=== PATIENT | female | born 1955 | race Caucasian/White ===

== ENCOUNTER → 2016-07-15 | Day surgery (SDC) | payer BC ==
[~2016-07-15] MED LIST: Sodium Chloride 0.9% 1,000 ML IV SCH
[2016-07-15 08:17] VITALS: BP 156/85
== END ==
LOC: JP.SDS 08:02
PROVIDERS: ATTEND Surgery
DX: Z12.11 Encounter for screening for malignant neoplasm of colon (principal); Z53.8 Procedure and treatment not carried out for other reasons

== ENCOUNTER 2020-04-17 05:25 | Day surgery (SDC) | payer MEDICARE ==
[2020-04-17] MEDS ORDERED: Ondansetron 4 MG/2 ML SDV IVPUSH ONE (06:16)
[2020-04-17] MEDS ORDERED: Dextrose 5%-Lactated Ringers 1,000 ML IV SCH ×2 (07:00)
[2020-04-17] MEDS ORDERED: Midazolam 1 MG/ML 2 ML SDV ONE (07:16)
[2020-04-17] MEDS ORDERED: fentaNYL 100 MCG/2 ML SDV ONE (07:16)
[2020-04-17] MEDS ORDERED: Propofol 200 MG/20 ML SDV ONE (07:16)
[2020-04-17 08:35] VITALS: PULSE 81
[2020-04-17 09:09] VITALS: BP 116/74
--- NOTE | 2020-04-23 15:22 | OR ---
DATE OF PROCEDURE: 04/17/2020 SURGEON: Kendall Hernandez MD PREOPERATIVE DIAGNOSIS: History of colon polyps. POSTOPERATIVE DIAGNOSIS: Normal colonoscopy with no recurrent colon polyps. PROCEDURE PERFORMED: Flexible colonoscopy. ANESTHESIA: IV sedation. INDICATIONS FOR PROCEDURE: This is a 64-year-old female presenting for followup screening colonoscopy. She does have a history of colon polyps, and on her last examination, had some low-grade dysplasia in one of the polyps. Because of what appears to be a relatively aggressive polyp formation pattern, she is presently on her 3-year followup cycle for the colonoscopies. Plan is to proceed with colonoscopy with biopsies and/or polypectomy as indicated. Potential risks including bleeding and perforation were discussed, and the patient wishes to proceed. DETAILS OF PROCEDURE: The patient was taken to the operating room and placed in the left lateral decubitus position. IV sedation was administered, after which the initial digital rectal exam was performed and was unremarkable. Colonoscope was then passed into the rectum with retroflexion revealing uncomplicated hemorrhoidal columns. The scope was then eventually passed to the cecum. The prep was quite good. Only a small amount of liquid stool was present. To that level, no abnormalities were noted. There were no areas of diverticular disease or colitis, and no polyps or other signs of neoplasia. The scope was then withdrawn and the procedure then concluded. The patient was taken to the recovery room in satisfactory condition. RECOMMENDATIONS: Repeat the colonoscopy in 3 years as noted above. Kendall Hernandez MD /[id number]
== END 2020-04-17 09:00 | disposition home or self-care (01) ==
LOC: JP.SDS 05:25
PROVIDERS: ATTEND Surgery
DX: Z12.11 Encounter for screening for malignant neoplasm of colon (principal); K64.9 Unspecified hemorrhoids; I10 Essential (primary) hypertension; Z86.010 Personal history of colon polyps; Z88.2 Allergy status to sulfonamides
CPT/HCPCS: G0105; J2250; J2405; J2704; J3010; J7121

== ENCOUNTER 2024-10-05 06:11 | Day surgery (SDC) | payer MEDICARE ==
[2024-10-05] MEDS: Lactated Ringers 1,000 ML IV SCH (07:08)
[2024-10-05] MEDS ORDERED: fentaNYL 100 MCG/2 ML SDV ONE (07:35)
[2024-10-05] MEDS ORDERED: Propofol 200 MG/20 ML SDV ONE (07:35)
[2024-10-05 09:41] VITALS: BP 114/63; PULSE 65
== END 2024-10-05 09:10 | disposition home or self-care (01) ==
LOC: JP.SDS 06:11
PROVIDERS: ATTEND Surgery
DX: Z12.11 Encounter for screening for malignant neoplasm of colon (principal); D12.3 Benign neoplasm of transverse colon; I10 Essential (primary) hypertension; E66.9 Obesity, unspecified; Z88.2 Allergy status to sulfonamides
CPT/HCPCS: 00811; 45380; 88305; J2704; J3010; J7120